=== PATIENT | female | born 1980 | race Caucasian/White ===

== ENCOUNTER 2024-08-02 19:59 | Emergency (ER) | payer OTHER ==
[~2024-08-02] VITALS: Ht 162.6 cm; Wt 99.8 kg
[2024-08-02 20:40] VITALS: TEMP 98.1
[2024-08-02] MEDS: IV NS 0.9% 500 ML BAG IV ONE (21:00)
[2024-08-02] MEDS: KETOROLAC TROMETHAMINE 15 MG/ML VIAL IV ONE (21:00)
[2024-08-02 21:53] VITALS: BP 135/75; O2SAT 95
== END 2024-08-02 21:54 | disposition home or self-care (01) ==
LOC: ER 20:17
DX: J06.9 Acute upper respiratory infection, unspecified (principal); J45.909 Unspecified asthma, uncomplicated; R11.10 Vomiting, unspecified; R19.7 Diarrhea, unspecified; Z20.822 Contact with and (suspected) exposure to COVID-19
CPT/HCPCS: 99283; 96374; 87426; 87804 ×2; J1885; J7040